=== PATIENT | male | born 1950 | race Caucasian/White ===

== ENCOUNTER 2017-12-11 09:56 | Emergency (ER) | payer MEDICARE, OTHER ==
[~2017-12-11] VITALS: Ht 170.2 cm; Wt 108.9 kg
[~2017-12-11 09:56] MED LIST: ACTOS 30 MG TAB30 M1 PO; ADVAIR 250-501 EACH; AMOXICILLIN 50500 MG PO; AUGMENTIN 875875 M1; AUGMENTIN 875875 M1 PO; AVODART0.5 MG; AZITHROMYCIN 2250 MG PO; AZOR 10-40 MG1 EACH PO; AZOR 5-20 MG T1 EACH PO; BROVANA15 MCG/2 M INH; BUDESONIDE0.5 MG/2 M INH; CARDURA2 MG PO; CEFTIN500 MG PO; CEFUROXIME500 MG PO; COMBIVENT; COMBIVENT INH; DEPO-TESTO100 MG/1 M IM; DOXYCYCLINE 10100 MG PO; DUONEB 2.5-0.5 M3 ML INH; FINASTERIDE5 MG PO; FLEXERIL PO; GLIPIZIDE 10 MG10 MG PO; GLUCOPHAGE500 MG PO; HYDROCODONE-AP1 EAC6 PO; LANTUS SUBQ; LOSARTAN-HCTZ1 EAC1 PO; MEDROL DOSPAK21 TA1 PO; MUCINEX TA600 MG/TA1 PO; MUCINEX600 MG PO; NEXIUM40 MG PO; NORVASC10 MG PO; PERCOCET 5-3251 EACH PO; PERCOCET 7.5-31 EACH PO; PREDNISONE 10 M10 M1; PREDNISONE 10 M10 MG PO; SINGULAIR 10 MG10 M1 PO; TAMSULOSIN HCL0.4 M1; TAMSULOSIN HCL0.4 MG PO; TESSALON PERLE100 MG PO; TRADJENTA5 MG PO
[2017-12-11 10:23] LABS: INFLUENZA A ANTIGEN None Detected (None Detect); INFLUENZA B ANTIGEN None Detected (None Detect)
[2017-12-11 10:48] LABS: ABSOLUTE EOSINOPHILS 0.4 thou/uL (0.0-0.7); ABSOLUTE LYMPHOCYTES 1.6 thou/uL (0.8-5.3); ABSOLUTE NEUTROPHILS 7.7 thou/uL (1.6-8.1); BASOPHILS 0.2 %; EOSINOPHILS 3.9 %; HEMATOCRIT 45.3 % (42.0-52.0); HEMOGLOBIN 15.2 gm/dL (14.0-18.0); LYMPHOCYTES 15.1 %; MCH 30.6 pg (26.0-34.0); MCHC 33.6 g/dL (28.0-37.0); MCV 91.1 fL (80.0-100.0); MONOCYTES 9.6 %; NUCLEATED RBCS 0 /100WBC; PLATELET COUNT* 324 thou/uL (150-400); POLYS 71.2 %; RBC 4.97 mil/uL (4.50-6.00); RDW-CV 13.7 % (10.5-14.5); WBC 10.9 thou/uL (4.0-11.0)
[2017-12-11 10:56] LABS: CALCIUM 8.8 mg/dL (8.5-10.1); CREATININE 0.9 mg/dL (0.6-1.3); POTASSIUM 4.2 mmol/L (3.5-5.1)
[2017-12-11 11:00] LABS: ALBUMIN 4.2 g/dL (3.4-5.0); APTT 30.3 Seconds (25.0-31.3); PROTIME 9.7 Seconds (9.20-11.50); TOTAL BILIRUBIN 0.4 mg/dL (<0.1-1.0)
[2017-12-11] MEDS ORDERED: ZPAK PO (11:41)
[2017-12-11] MEDS ORDERED: PREDNISONE 20 M20 M1 PO (11:41)
[2017-12-11 11:57] VITALS: BP 153/75
== END 2017-12-11 11:58 | disposition home or self-care (01) ==
LOC: M.ERS 09:56
PROVIDERS: Emergency Medicine; Nurse Practitioner Family
DX: J18.9 Pneumonia, unspecified organism (principal); E11.9 Type 2 diabetes mellitus without complications; J45.909 Unspecified asthma, uncomplicated; J44.9 Chronic obstructive pulmonary disease, unspecified; Z88.1 Allergy status to other antibiotic agents; Z88.8 Allergy status to other drugs, medicaments and biological substances; Z87.891 Personal history of nicotine dependence

== ENCOUNTER → 2021-02-19 | Outpatient (CLI) | payer MEDICARE, OTHER ==
[~2021-02-19] MED LIST changes: +PREDNISONE 20 M20 M1 PO; +ZPAK PO
== END ==
LOC: M.ULTRA 12:32
PROVIDERS: ATTEND Family Medicine
DX: I70.203 Unspecified atherosclerosis of native arteries of extremities, bilateral legs (principal); J43.9 Emphysema, unspecified; E11.9 Type 2 diabetes mellitus without complications; Z88.8 Allergy status to other drugs, medicaments and biological substances; Z79.899 Other long term (current) drug therapy

== ENCOUNTER 2021-05-12 09:19 | Emergency (ER) | payer OTHER, MEDICARE ==
[~2021-05-12] VITALS: Ht 170.2 cm; Wt 113.4 kg
[2021-05-12] MEDS ORDERED: COZAAR 25 MG TA25 M1 PO (09:31)
[2021-05-12] MEDS ORDERED: NEXIUM 40 MG CA40 M1 PO (09:31)
[2021-05-12] MEDS ORDERED: AZITHROMYCIN500 MG PO (09:32)
[2021-05-12] MEDS ORDERED: PRESERVISION A1 EAC2 PO (09:32)
[2021-05-12] MEDS ORDERED: DOXYCYCLINE 10100 M2 PO (09:33)
[2021-05-12] MEDS ORDERED: LANTUS SUBQ (09:33)
[2021-05-12] MEDS ORDERED: PROPRANOLOL 20M20 M1 PO (09:33)
[2021-05-12] MEDS ORDERED: PREDNISONE 20 M20 MG PO (09:34)
[2021-05-12] MEDS ORDERED: PREDNISONE 20 M20 M1 PO (10:18)
[2021-05-12] MEDS ORDERED: XANAX 0.5 MG0.5 MG PO (10:18)
[2021-05-12 10:38] VITALS: BP 194/96
--- NOTE | 2021-05-14 09:50 | EKG ---
[place] [address] ELECTROCARDIOGRAM REPORT Name: MCKENNA ROWE Room: [facility]#: [id number] Admission: 05/12/21 Attend Phys: Discharge: 05/12/21 Date of : 48 Date of Service: 05/12/21 0940 Report #: [id number] THIS REPORT FOR: //name// [facility] ED Test Date: 2021-05-12 Test Time: 09:40:07 Pat Name: MCKENNA ROWE Department: Room: Gender: Academic Advisement Director: : [id number] Requested By: Elder Lisa Order Number: [id number] MD: Genaro Osorio Measurements Intervals [place] Rate: 85 P: 81 VT: 154 QRS: 20 QRSD: 82 T: 48 QT: 360 QTc: 428 Interpretive Statements Sinus rhythm Anterior infarct, old Baseline wander in lead(s) I,aVR,V1 Compared to ECG 02/16/2017 05:29:36 Sinus tachycardia no longer present Myocardial infarct finding still present Electronically Signed On 05-14-2021 9:50:42 CDT by Genaro Osorio [email or web address] <ELECTRONICALLY SIGNED> By: Genaro Osorio MD, FAC 05/14/21 0950 Genaro Osorio MD, FAC /EPI
== END 2021-05-12 10:39 | disposition home or self-care (01) ==
LOC: M.ERS 09:19
DX: J44.1 Chronic obstructive pulmonary disease with (acute) exacerbation (principal); Z20.822 Contact with and (suspected) exposure to COVID-19; E11.9 Type 2 diabetes mellitus without complications; Z86.718 Personal history of other venous thrombosis and embolism; Z79.899 Other long term (current) drug therapy; Z88.1 Allergy status to other antibiotic agents; Z88.8 Allergy status to other drugs, medicaments and biological substances; Z87.891 Personal history of nicotine dependence; Z79.4 Long term (current) use of insulin